=== PATIENT | male | born 1930 | race Caucasian/White ===

== ENCOUNTER 2016-08-03 17:43 | Inpatient (IN) | payer MEDICARE, BC ==
[~2016-08-03] VITALS: Ht 185.4 cm; Wt 100.1 kg
[~2016-08-03 17:43] MED LIST: ALDACTONE25 MG PO; ASPIRIN325 MG PO; ATENOLOL50 MG PO; CARVEDILOL12.5 MG PO; CEPHALEXIN500 MG PO; CIPRO XR500 MG PO; CYANOCOBALAM1000 MCG IJ; DIGITEK0.125 MG PO; FOLIC ACID1 MG PO; GLYBURIDE5 MG OR; JANTOVEN3 MG PO; JANTOVEN5 MG OR; JANTOVEN5 MG PO; LASIX 40 MG TAB40 MG PO; LASIX40 MG OR; LEXAPRO20 MG OR; LISINOPRIL20 M1 PO; LISINOPRIL5 MG PO; LOFIBRA134 MG PO; LORTAB 5 PO; LYRICA150 MG OR; METFORMIN500 M1 OR; NEURONTIN300 MG PO; NITROSTAT0.4 MG PO; PRAVASTATIN SOD20 MG PO; PROTONIX40 M2 PO; THEO-24300 MG PO; TRICOR145 MG OR; WARFARIN2.5 MG PO; WARFARIN5 MG PO; ZOFRAN4 MG/TAB PO; ZYLOPRIM300 MG PO
[2016-08-03] MEDS ORDERED: ALLOPURINOL300 MG PO (18:39)
[2016-08-03] MEDS ORDERED: ATORVASTATIN CA40 MG PO (18:40)
[2016-08-03] MEDS ORDERED: CILOSTAZOL50 MG PO (18:41)
[2016-08-03] MEDS ORDERED: DOXAZOSIN4 MG PO (18:42)
[2016-08-03 18:49] LABS: HEMATOCRIT 30.4 % (39.0-50.0); HEMOGLOBIN 9.6 g/dl (14.0-18.0); IMMATURE GRANULOCYTES 0.2 % (0.0-1.0); MEAN CELL VOLUME 91.3 fL CALC (80.0-100.0); MEAN CORPUSCULAR HGB 28.8 pG CALC (26.0-32.0); MEAN CORPUSCULAR HGB CONC 31.6 g/L CALC (32.0-36.0); NEUT# 5.27 thou/uL (1.82-7.42); RED BLOOD COUNT 3.33 mill/uL (4.70-6.10); RED CELL DISTRI WIDTH 18.5 % (11.5-15.5)
[2016-08-03] MEDS ORDERED: TAMSULOSIN HCL0.4 MG PO (18:49)
[2016-08-03 18:56] LABS: ALBUMIN 3.7 g/dL (3.2-5.0); ALKALINE PHOSPHATASE 79 u/l (38-126); ANION GAP 17 (6-22 (CALC)); BILIRUBIN, TOTAL 1.8 mg/dL (0.0-1.4); BUN 16 mg/dL (8-23); BUN/CREATININE RATIO 19 (12-20 (CALC)); CALCIUM 8.7 mg/dL (8.4-10.2); CARBON DIOXIDE 29 mmol/l (22-30); CHLORIDE 99 mmol/l (95-108); CREATININE 0.8 mg/dL (0.7-1.3); GFR > 60 ML/MIN (>=60 (CALC)); GFR FOR AFR.AMER. > 60 ML/MIN (>=60 (CALC)); GLUCOSE 100 mg/dL (82-115); POTASSIUM 3.5 mmol/l (3.5-5.1); SGOT/AST 23 u/l (19-48); SGPT/ALT 32 u/l (11-66); SODIUM 142 mmol/l (137-146); TOTAL PROTEIN 6.5 g/dL (6.3-8.2)
[2016-08-03 19:16] LABS: INFLUENZA A NONE DETECTED (NONE DETECT); INFLUENZA B NONE DETECTED (NONE DETECT)
[2016-08-03 20:40] LABS: INTERNATIONAL NORMALIZED RATIO 1.5 RATIO (0.7-1.3); PROTHROMBIN TIME 16.7 SECONDS (9.0-12.5)
[2016-08-03 20:50] VITALS: BP 148/65
[2016-08-03 22:21] LABS: URINE BLOOD DIPSTICK TRACE-INTACT (NEGATIVE); URINE CLARITY CLEAR; URINE COLOR YELLOW; URINE GLUCOSE - DIPSTICK NEGATIVE (NEGATIVE); URINE KETONE NEGATIVE (NEGATIVE); URINE LEUK ESTERASE NEGATIVE (NEGATIVE); URINE NITRITE - DIPSTICK NEGATIVE (Negative); URINE PROTEIN - DIPSTICK TRACE mg/dL (NEG-TRACE)
[2016-08-03 22:24] LABS: URINE BILIRUBIN - DIPSTICK NEGATIVE (NEGATIVE)
[2016-08-04 00:20] VITALS: BP 128/67
[2016-08-04 04:10] VITALS: BP 138/66
[2016-08-04 05:25] LABS: HEMATOCRIT 29.7 % (39.0-50.0); HEMOGLOBIN 9.3 g/dl (14.0-18.0); IMMATURE GRANULOCYTES 0.5 % (0.0-1.0); MEAN CELL VOLUME 90.8 fL CALC (80.0-100.0); MEAN CORPUSCULAR HGB 28.4 pG CALC (26.0-32.0); MEAN CORPUSCULAR HGB CONC 31.3 g/L CALC (32.0-36.0); NEUT# 5.17 thou/uL (1.82-7.42); RED BLOOD COUNT 3.27 mill/uL (4.70-6.10)
[2016-08-04 05:36] LABS: ANION GAP 14 (6-22 (CALC)); BUN 15 mg/dL (8-23); BUN/CREATININE RATIO 21 (12-20 (CALC)); CALCIUM 8.3 mg/dL (8.4-10.2); CARBON DIOXIDE 30 mmol/l (22-30); CHLORIDE 100 mmol/l (95-108); CREATININE 0.7 mg/dL (0.7-1.3); GFR > 60 ML/MIN (>=60 (CALC)); GFR FOR AFR.AMER. > 60 ML/MIN (>=60 (CALC)); GLUCOSE 172 mg/dL (82-115); INTERNATIONAL NORMALIZED RATIO 1.6 RATIO (0.7-1.3); POTASSIUM 3.8 mmol/l (3.5-5.1); PROTHROMBIN TIME 17.5 SECONDS (9.0-12.5); SODIUM 141 mmol/l (137-146)
[2016-08-04 07:56] VITALS: BP 146/70
[2016-08-04 11:08] VITALS: BP 146/58
[2016-08-04 14:18] VITALS: BP 145/66
[2016-08-04 19:20] VITALS: BP 144/62
[2016-08-05 01:05] VITALS: BP 137/61
[2016-08-05 05:30] VITALS: BP 146/78
[2016-08-05 05:34] LABS: INTERNATIONAL NORMALIZED RATIO 1.7 RATIO (0.7-1.3); PROTHROMBIN TIME 18.7 SECONDS (9.0-12.5)
[2016-08-05 07:47] VITALS: BP 155/71
[2016-08-05 11:00] VITALS: BP 138/74
[2016-08-05 16:55] VITALS: BP 173/86
[2016-08-05 19:10] VITALS: BP 156/78
[2016-08-06 00:50] VITALS: BP 158/84
[2016-08-06 04:45] VITALS: BP 167/87
[2016-08-06 06:17] LABS: HEMATOCRIT 31.4 % (39.0-50.0); HEMOGLOBIN 10.1 g/dl (14.0-18.0); IMMATURE GRANULOCYTES 0.5 % (0.0-1.0); MEAN CELL VOLUME 90.2 fL CALC (80.0-100.0); MEAN CORPUSCULAR HGB CONC 32.2 g/L CALC (32.0-36.0); NEUT# 8.2 thou/uL (1.82-7.42); RED BLOOD COUNT 3.48 mill/uL (4.70-6.10); RED CELL DISTRI WIDTH 17.5 % (11.5-15.5)
[2016-08-06 06:35] LABS: INTERNATIONAL NORMALIZED RATIO 1.7 RATIO (0.7-1.3); PROTHROMBIN TIME 18.9 SECONDS (9.0-12.5)
[2016-08-06 06:36] LABS: ANION GAP 14 (6-22 (CALC)); BUN 22 mg/dL (8-23); BUN/CREATININE RATIO 31 (12-20 (CALC)); CALCIUM 8.3 mg/dL (8.4-10.2); CARBON DIOXIDE 31 mmol/l (22-30); CHLORIDE 99 mmol/l (95-108); CREATININE 0.7 mg/dL (0.7-1.3); GFR > 60 ML/MIN (>=60 (CALC)); GFR FOR AFR.AMER. > 60 ML/MIN (>=60 (CALC)); GLUCOSE 162 mg/dL (82-115); POTASSIUM 3.8 mmol/l (3.5-5.1); SODIUM 140 mmol/l (137-146)
[2016-08-06 10:50] VITALS: BP 151/72
[2016-08-06] MEDS ORDERED: PREDNISONE10 MG PO (12:15)
[2016-08-06] MEDS ORDERED: LEXAPRO10 MG PO (12:15)
[2016-08-06] MEDS ORDERED: DOXYCYCL HYC100 MG PO (12:17)
== END 2016-08-06 15:20 | DRG 195 ==
LOC: ENPENDDIS → ED 17:43 → ED-I 19:15 → ED 19:53 → MS2 19:54
PROVIDERS: Emergency Medicine; ADMIT Internal Medicine; ATTEND Internal Medicine
DX: J18.9 Pneumonia, unspecified organism (principal); I48.2 Chronic atrial fibrillation; E11.9 Type 2 diabetes mellitus without complications; J02.0 Streptococcal pharyngitis; I10 Essential (primary) hypertension; F32.9 Major depressive disorder, single episode, unspecified; I25.10 Atherosclerotic heart disease of native coronary artery without angina pectoris; M10.9 Gout, unspecified; I09.9 Rheumatic heart disease, unspecified; H10.33 Unspecified acute conjunctivitis, bilateral; Z87.891 Personal history of nicotine dependence; Z95.5 Presence of coronary angioplasty implant and graft; Z95.0 Presence of cardiac pacemaker; Z79.01 Long term (current) use of anticoagulants

== ENCOUNTER 2017-03-26 12:25 | Observation (INO) | payer MEDICARE, BC ==
[~2017-03-26] VITALS: Ht 185.4 cm; Wt 111.0 kg
[~2017-03-26 12:25] MED LIST changes: +ALLOPURINOL300 MG PO; +ATORVASTATIN CA40 MG PO; +CILOSTAZOL50 MG PO; +DOXAZOSIN4 MG PO; +DOXYCYCL HYC100 MG PO; +LEXAPRO10 MG PO; +PREDNISONE10 MG PO; +TAMSULOSIN HCL0.4 MG PO
--- NOTE | 2017-03-26 12:25 | NUR ---
PATIENT ARRIVED TO ROOM FOR EXAM VIA EMS. EMS REPORTS GIVING DUONEB IN ROUTE.
--- NOTE | 2017-03-26 12:40 | NUR ---
RT AT BEDSIDE FOR ABG.
--- NOTE | 2017-03-26 13:00 | NUR ---
O2 APPLIED AT 2L VIA NASAL CANNULA. PATIENT TOLERATING WELL. CALL LIGHT WITHIN REACH, WILL CONTINUE TO MONITOR.
[2017-03-26 13:07] LABS: HEMATOCRIT 36.7 % (39.0-50.0); IMMATURE GRANULOCYTES 0.5 % (0.0-1.0); MEAN CELL VOLUME 98.4 fL CALC (80.0-100.0); MEAN CORPUSCULAR HGB 32.2 pG CALC (26.0-32.0); MEAN CORPUSCULAR HGB CONC 32.7 g/L CALC (32.0-36.0); NEUT# 3.74 thou/uL (1.82-7.42); RED BLOOD COUNT 3.73 mill/uL (4.70-6.10); RED CELL DISTRI WIDTH 14.6 % (11.5-15.5)
[2017-03-26 13:18] LABS: ANION GAP 16 (6-22 (CALC)); BUN 18 mg/dL (8-23); BUN/CREATININE RATIO 24 (12-20 (CALC)); CALCIUM 9.3 mg/dL (8.4-10.2); CARBON DIOXIDE 27 mmol/l (22-30); CHLORIDE 103 mmol/l (95-108); CREATININE 0.7 mg/dL (0.7-1.3); GFR > 60 ML/MIN (>=60 (CALC)); GFR FOR AFR.AMER. > 60 ML/MIN (>=60 (CALC)); GLUCOSE 107 mg/dL (82-115); POTASSIUM 4.2 mmol/l (3.5-5.1); SODIUM 142 mmol/l (137-146)
--- NOTE | 2017-03-26 14:03 | NUR ---
PATIENT RETURNS FROM CT SCAN WITH MILD INCREASE RESPIRATORY EFFORT. PATIENT NOW RESTING ON STRETCHER WITH RESPIRATIONS 22 BREATHES PER MINUTE.
[2017-03-26 14:11] LABS: INFLUENZA A NONE DETECTED (NONE DETECT)
[2017-03-26 14:12] LABS: INFLUENZA B NONE DETECTED (NONE DETECT)
--- NOTE | 2017-03-26 14:40 | NUR ---
SBAR PRINTED TO FLOOR
[2017-03-26] MEDS ORDERED: LISINOPRIL5 MG PO (15:06)
[2017-03-26] MEDS ORDERED: FERR SULFATE325 MG PO (15:08)
[2017-03-26] MEDS ORDERED: NITROSTAT0.4 MG SL (15:08)
[2017-03-26] MEDS ORDERED: ACETAMIN325 MG PO (15:09)
[2017-03-26] MEDS ORDERED: FUROSEMIDE20 MG PO (15:10)
[2017-03-26] MEDS ORDERED: WARFARIN2.5 MG PO (15:11)
--- NOTE | 2017-03-26 15:47 | NUR ---
ATTEMPT TO CALL REPORT, SPOKE TO SCOT. STATES "THE NURSE IS IN A ROOM, ILL HAVE HER CALL YOU BACK."
--- NOTE | 2017-03-26 16:04 | NUR ---
REPORT GIVEN TO TONG ANGUIANO.
--- NOTE | 2017-03-26 16:13 | NUR ---
PT ARRIVED TO FLOOR VIA STRETCHER ACCOMPANIED BY TONG GARCIA. PT TRANSFERED TO BED WITH STAND-BY ASSIST. UNSTEADY GAIT. GENERALIZED WEAKNESS NOTED. SOB W/ EXERTION. FALL PRECAUTIONS REINFORCED. DENIES PAIN AT THIS TIME. REPORTING OF CONCERNS ENCOURAGED. PLAN OF CARE DISCUSSED. CALL LIGHT REVIEWED AND IN REACH. PT STATES UNDERSTANDING.
--- NOTE | 2017-03-26 16:15 | NUR ---
PATIENT TRANSPORTED TO [facility] WITH TELE AND O2 AT 2L VIA NASAL CANNULA. TRANSPORTED VIA STRETCHER, BEDSIDE REPORT GIVEN TO TONG ANGUIANO. CARE RELINQUISHED.
[2017-03-26 16:26] VITALS: BP 179/78
[2017-03-26 17:19] VITALS: BP 150/71
[2017-03-26 19:00] VITALS: BP 142/66
--- NOTE | 2017-03-26 19:20 | NUR ---
BEDSIDE REPORT RECEIVED FROM TONG ANGUIANO. PT RESTING IN BED WATCHING TV. A VISITOR AT BEDSIDE. DENIES PAIN CURRENTLY. RESPIRATIONS EVEN AND UNLABORED ON OXYGEN. PLAN OF CARE DISCUSSED. PT ENCOURAGED TO VERBALZIE CONCERNS. STATES UNDERSTANDING. SAFETY MEASURES IN PLACE. CALL LIGHT WITHIN REACH.
--- NOTE | 2017-03-26 22:36 | NUR ---
PT HAS NO REQUESTS OR COMPLAINTS AT THIS TIME. RESTORIL GIVEN AT HS FOR SLEEP; PT STATES THAT HE DID NOT GET GOOD SLEEP LAST LIGHT. ENCOURAGED TO CALL FOR ANY NEEDS. IV SITE APPEARS HEALTHY AND FLUSHES. ASSESSMENT COMPLETED AND DOCUMENTED. SAFETY MEASURES IN PLACE. CALL LIGHT WITHIN REACH.
[2017-03-27] VITALS (7 sets, daily range): BP systolic 118–160; BP diastolic 60–77
--- NOTE | 2017-03-27 05:13 | NUR ---
PT SLEPT THROUGHOUT THE NIGHT WITH NO COMPLAINTS. DENIES PAIN. USES URINAL AT BEDSIDE TO VOID. IV SITE TO RFA FOUND DISLODGED; NEW IV PLACED AND EMS SITE D/C'D. SAFETY MEASURES IN PLACE. CALL LIGHT WITHIN REACH.
--- NOTE | 2017-03-27 07:00 | NUR ---
INTRODUCED SELF TO PT AND COMPLETED ASSESSMENT. PT COMPLAINS OF PAIN 1/10 TO LLQ WHEN EXAMINED, REPOSITIONED FOR COMFORT. VITALS WNL. RESPIRATIONS EVEN AND UNLABORED O2 SAT AT 97% ON 2L NC. PT HAS EXPIRATORY WHEEZES BILATERALLY WITH COARSENESS TO BILATERAL UPPER LOBES. PT IS A&O X 3. SKIN IS WARM AND DRY W/ LIVER SPOTS ALL OVER HIS BODY. CALL LIGHT AND BEDSIDE TABLE WITHIN REACH. PT INSTRUCTED TO CALL FOR ASSISTANCE. WILL CONTINUE TO MONITOR.
--- NOTE | 2017-03-27 07:15 | NUR ---
REPORT RECEIVED FROM TONG DAVIS. PT SLEEPING AT THIS TIME. CALL LIGHT WITHIN REACH.
--- NOTE | 2017-03-27 08:45 | NUR ---
IN TO REASSESS PTS RESPIRATORY STATUS AFTER NEB TREATMENT. PTS RESPIRATIONS ARE EVEN AND UNLABORED W/ BILATERAL EXPIRATORY RHONCHI. CALL LIGHT AND BEDSIDE TABLE ARE WITHIN REACH BED IS IN LOWEST POSITION WITH WHEELS LOCKED. PT IS RESTING SUPINE IN BED WITH O2 AT 2L NC. WILL CONTINUE TO MONITOR.
--- NOTE | 2017-03-27 10:01 | NUR ---
PT SITING UPRIGHT IN BED. AUDIBLE WHEEZING HEARD. NO SOB AT THIS TIME. O2 @ 2L VIA NC. FALL PRECAUTIONS REINFORCED. PLAN OF CARE DISCUSSED. PT DENIES PAIN. CALL LIGHT REVIEWED AND IN REACH. PT STATES UNDERSTANDING.
--- NOTE | 2017-03-27 11:00 | NUR ---
IN TO REASSESS PTS RESPIRATORY STATUS. PTS RESPIRATIONS ARE EVEN AND UNLABORED W/ BILATERAL EXPIRATORY WHEEZING. INSTRUCTED PT ON USE OF INCENTIVE SPIROMETER W/ PT DEMONSTRATING KNOWLEDGE OF HOW TO USE IT. RT CONTACTED FOR NEB TREATMENT . CALL LIGHT AND BEDSIDE TABLE WITHIN REACH W/ BED IN LOWEST POSITION AND WHEELS LOCKED. PT IS RESTING IN SUPINE POSTION. O2 SAT IS 97% AT 2L NC. WILL CONTINUE TO MONITOR.
--- NOTE | 2017-03-27 12:17 | NUR ---
PT SITTING UPRIGHT IN BED. DENIES PAIN. REPORTS RELIEF OF SOB WITH NEB TX. REPORTING OF CONCERNS ENCOURAGED.
--- NOTE | 2017-03-27 16:30 | NUR ---
PT IS RELAXING IN BED WITH NO DISTRESS NOTED. IV SITE IS FREE FROM REDNESS OR EDEMA.
--- NOTE | 2017-03-27 19:15 | NUR ---
BEDSIDE REPORT RECEIVED FROM ROMAN HENSLEY. PT RESTING IN BED WATCHING TV; ALERT AND ORIENTED. DENIES PAIN. RESPIRATIONS EVEN AND UNLABORED ON OXYGEN. IV SITE TO RAC BLOODY WITH SOME DISCOMFORT. DRESSING REPLACED AND IV SITE APPEARS HEALTHY AND FLUSHES; PT NOW DENIES DISCOMFORT. PLAN OF CARE DISCUSSED. PT ENCOURAGED TO VERBALIZE CONCERNS. STATES UNDERSTANDING. SAFETY MEASURES IN PLACE. CALL LIGHT WITHIN REACH.
[2017-03-28 00:14] LABS: URINE BILIRUBIN - DIPSTICK NEGATIVE (NEGATIVE); URINE BLOOD DIPSTICK TRACE-INTACT (NEGATIVE); URINE CLARITY CLEAR; URINE COLOR YELLOW; URINE GLUCOSE - DIPSTICK NEGATIVE (NEGATIVE); URINE KETONE NEGATIVE (NEGATIVE); URINE LEUK ESTERASE NEGATIVE (NEGATIVE); URINE NITRITE - DIPSTICK NEGATIVE (Negative); URINE PROTEIN - DIPSTICK NEGATIVE (NEG-TRACE); URINE UROBILINOGEN - DIPSTICK 0.2 E.U./dL (0.2)
--- NOTE | 2017-03-28 00:17 | NUR ---
PT ASLEEP AT THIS TIME WITH NO SIGNS OF DISTRESS NOTED. RESPIRATIONS EVEN AND UNLABORD ON OXYGEN. PT USING URINAL AND AMBULATING INTO BATHROOM INDPENDENTLY. SAFETY MEASURES IN PLACE. CALL LIGHT WITHIN REACH.
--- NOTE | 2017-03-28 04:06 | NUR ---
PT SLEPT THROUGHOUT THE NIGHT. NO COMPLAINTS OR REQUESTS AT THIS TIME. DENIES PAIN. RESPIRATIONS EVEN AND UNLABORED ON OXYGEN. SAFETY MEASURES IN PLACE. CALL LIGHT WITHIN REACH.
[2017-03-28 04:53] VITALS: BP 140/72
[2017-03-28 06:37] LABS: HEMATOCRIT 35.6 % (39.0-50.0); HEMOGLOBIN 11.6 g/dl (14.0-18.0); IMMATURE GRANULOCYTES 0.6 % (0.0-1.0); MEAN CELL VOLUME 97.5 fL CALC (80.0-100.0); MEAN CORPUSCULAR HGB 31.8 pG CALC (26.0-32.0); MEAN CORPUSCULAR HGB CONC 32.6 g/L CALC (32.0-36.0); NEUT# 7.71 thou/uL (1.82-7.42); RED BLOOD COUNT 3.65 mill/uL (4.70-6.10); RED CELL DISTRI WIDTH 14.3 % (11.5-15.5)
[2017-03-28 06:53] LABS: ANION GAP 15 (6-22 (CALC)); BUN 26 mg/dL (8-23); BUN/CREATININE RATIO 36 (12-20 (CALC)); CALCIUM 9.5 mg/dL (8.4-10.2); CARBON DIOXIDE 30 mmol/l (22-30); CHLORIDE 105 mmol/l (95-108); CREATININE 0.7 mg/dL (0.7-1.3); GFR > 60 ML/MIN (>=60 (CALC)); GFR FOR AFR.AMER. > 60 ML/MIN (>=60 (CALC)); GLUCOSE 154 mg/dL (82-115); INTERNATIONAL NORMALIZED RATIO 2.3 RATIO (0.7-1.3); MAGNESIUM 1.9 mg/dL (1.6-2.3); PROTHROMBIN TIME 26.7 SECONDS (9.0-12.5); SODIUM 145 mmol/l (137-146)
[2017-03-28 09:15] VITALS: BP 129/54
--- NOTE | 2017-03-28 09:15 | NUR ---
ASSESSMENT IS COMPLTED: PT IS WHEEZING AUDIBLY, BUT WHEN LISTENING INSPIRATORY CLEAR AND DIMINISHED. HR IS REG,PULSES ARE STRONG X4. ABD IS SOFT WITH ACTIVE BS. IV SITE IS BLOODY AROUND THE CATHETER. CHANGED DRESSING AND REPALCED IWTH 2X2 AROUND CATHETER SITE. FLUSHES WELL. CONTINUE TO OBESRVE AND MONITOR.
--- NOTE | 2017-03-28 11:04 | NUR ---
SPOKE WITH FAMILY INQUIRING IF HE IS GOING HOME
--- NOTE | 2017-03-28 12:15 | NUR ---
PT IS RELAXING IN BED WITH NO DISTRESS NOTED. IV SITE IS FREE FROM REDNESS OR EDEMA. FAMILY HAS CALLED TO INQUIRE THE PLANS FOR PT.
[2017-03-28 12:30] VITALS: BP 138/74
--- NOTE | 2017-03-28 15:18 | NUR ---
CHANGED PT'S IV SITE IN RFA WITH 22, TOOK THE RAC IV OUT DUE TO LEAKING BLOOD AROUND THE CATHETER. CATHETER INTACT. PT TOLERATED WELL. CONTINUE TO OBSERVE AND MONITOR.
--- NOTE | 2017-03-28 16:15 | NUR ---
PT IS RELAXING IN BED WITH NO DISTRESS NOTED. IV SITE IS FREE FROM REDNESS OR EDEMA. CONTINUE TO OSEBRVE AND MONTIOR
[2017-03-28 16:45] VITALS: BP 140/77
[2017-03-28 19:00] VITALS: BP 134/78
--- NOTE | 2017-03-28 19:15 | NUR ---
BEDSIDE SHIFT REPORT RECEIVED FROM ROMAN HENSLEY. PT SITTING IN BED WATCHING TV. A & O X 3. DENIES PAIN OR DISTRESS. AWAITING DISCHARGE TO HOME. O2 DELIVERED AWAITING DISCHARGE. BED IN LOW POSITION, CALL LIGHT IN REACH. WILL CONTINUE TO MONITOR.
--- NOTE | 2017-03-29 00:20 | NUR ---
RECEIVED CALL ON PTS HEARTRATE IN 120'S. IN CHECKING ON PATIENT, PT ADVISED HAD JUST FINISHED BEING UP TO USE URINAL AND WAS NOW SETTLED. BED IN LOW POSITION, CALL LIGHT IN REACH.
[2017-03-29 00:47] VITALS: BP 151/77
[2017-03-29 04:10] VITALS: BP 116/77
--- NOTE | 2017-03-29 04:10 | NUR ---
PT LAYING IN BED ON RIGHT SIDE, RESP EVEN AND UNLABORED. NO MOVEMENT UPON MY ENTRANCE. CALL LIGHT IN REACH. BED IN LOW POSITION.
--- NOTE | 2017-03-29 06:46 | NUR ---
CHECK ON PATIENT, LAYING ON LEFT SIDE SNORING. RESP EVEN/UNLABORED. NO MOVEMENT ON MY ENTRANCE. BED LOW CONDITION, CALL LIGHT IN REACH.
[2017-03-29 08:20] VITALS: BP 152/85
--- NOTE | 2017-03-29 08:20 | NUR ---
ASSESSMENT IS COMPLETED: IV SITE IS FREE FROM REDNESS OR EDEMA. NO DISTRESS NOTED. BREATH SOUNDS ARE DIMINSHED IN R AND WHEEZES IN LEFT. O2 @ 2LITERS, HR IS REG, PULSES ARE STRONG
[2017-03-29 09:26] VITALS: BP 152/85
[2017-03-29] MEDS ORDERED: PREDNISONE10 MG PO (09:43)
[2017-03-29] MEDS ORDERED: ZITHROMAX500 MG PO (09:43)
[2017-03-29] MEDS ORDERED: IPRATROPIU0.5 MG/3 M NEB (09:43)
[2017-03-29] MEDS ORDERED: LEVAQUIN750 MG PO (10:09)
--- NOTE | 2017-03-29 12:30 | NUR ---
IN TO VISIT WITH PT AT 1000, CALLED SON AND DAUGHTER IN [place] AND INFORMED OF DISCHARGE. VERBALIZED UNDERSTANDING, FAMILY CAME TO GET PT. FAXED SCRIPTS TO [facility] , RECEIVED A CALL AT 1430 RE: SCRIPTS NOT READY YET, THEY WILL HAVE THEM READY IN 30 MINUTES. RECALLED FAMILY TO INFORM THEY WILL BE READY IN 30 MINUTES. THANKED US AGAIN FOR ALL OF THE HELP.
--- NOTE | 2017-03-29 12:50 | NUR ---
Discharge instructions given. Patient verbalizes understanding of same. Discharged in stable condition via Wheelchair to Home with family. All belongings sent with pt.
== END 2017-03-29 12:51 ==
LOC: ED 12:25 → ED-I 14:19 → ED 14:35 → MS2 14:36
PROVIDERS: Family Medicine; Nurse Practitioner Family; ADMIT Internal Medicine; ATTEND Internal Medicine
PROC: 3E0234Z Introduction of Serum, Toxoid and Vaccine into Muscle, Percutaneous Approach (ICD-10-PCS; principal; 2017-03-28)
DX: J44.1 Chronic obstructive pulmonary disease with (acute) exacerbation (principal); K44.0 Diaphragmatic hernia with obstruction, without gangrene; J20.9 Acute bronchitis, unspecified; I11.0 Hypertensive heart disease with heart failure; I50.9 Heart failure, unspecified; I48.2 Chronic atrial fibrillation; R09.02 Hypoxemia; I25.10 Atherosclerotic heart disease of native coronary artery without angina pectoris; M10.9 Gout, unspecified; I09.9 Rheumatic heart disease, unspecified; Z23 Encounter for immunization; Z95.0 Presence of cardiac pacemaker; Z95.5 Presence of coronary angioplasty implant and graft; Z79.01 Long term (current) use of anticoagulants; N40.0 Benign prostatic hyperplasia without lower urinary tract symptoms; E11.40 Type 2 diabetes mellitus with diabetic neuropathy, unspecified; F32.9 Major depressive disorder, single episode, unspecified
CPT/HCPCS: Q9967